=== PATIENT | female | born 1965 | race Hispanic/Latino ===

== ENCOUNTER 2020-12-30 07:02 | Day surgery (SDC) | payer OTHER ==
[2020-12-29 10:56] VITALS: BMI 28.3
[~2020-12-30 07:02] MED LIST: Bupivacaine PF 0.5% 30 ML VIAL ONE; EPINEPHrine 1 MG/ML AMP ONE
[2020-12-30] MEDS ORDERED: Lidocaine 1% MPF 2 ML VIAL ONE (08:01)
[2020-12-30] MEDS ORDERED: ceFAZolin 2 GM/DEX 5% 100 ML BAG ONE (08:29)
[2020-12-30] MEDS ORDERED: Propofol 1,000 MG/100 ML VIAL IV ONE (08:30)
[2020-12-30] MEDS ORDERED: Fentanyl 100 MCG/2 ML VIAL ONE (08:31)
[2020-12-30] MEDS ORDERED: PROPOFOL 20 ML ONE (08:35)
[2020-12-30] MEDS ORDERED: PHENYLEPHRINE-NS 100 MCG/ML 10 ML SYRINGE ONE (08:46)
[2020-12-30] MEDS ORDERED: HYDROcodone/Acetaminophen 5/325 mg Tablet PO PRN (09:32)
== END 2020-12-30 10:28 | disposition home or self-care (01) ==
LOC: CSHSDC 07:02
PROVIDERS: ATTEND Surgery
DX: C22.1 Intrahepatic bile duct carcinoma (principal)
CPT/HCPCS: 71045; C1788; J0171; J1642; J2704; J3010; S0020